=== PATIENT | female | born 1985 | race American Indian/Alaskan Native ===

== ENCOUNTER 2018-09-22 08:35 | Observation (INO) | payer MEDICARE ==
--- NOTE | 2018-09-22 09:31 | Anesthesia Day of Surgery ---
Anesthesia Day of Surgery - Day of Surgery Patient Examined: Yes Patient H&P Reviewed: Yes Patient is NPO: Yes
--- NOTE | 2018-09-22 09:31 | Anesthesia Consultation ---
Anesthesia Consult and Med Hx - Airway Anesthetic Teeth Evaluation: Good ROM Head & Neck: Adequate Mallampati Class: Class II Intubation Access Assessment: Good - Pulmonary Exam CTA: Yes - Cardiac Exam Cardiac Exam: RRR - Pre-Operative Health Status ASA Pre-Surgery Classification: ASA3 Proposed Anesthetic Plan: General (Morbidly obese patient , weight 508 pounds) - Pulmonary Hx Smoking: Yes (1/2 PPD X 20YRS; QUIT 01/2018) Hx Asthma: Yes (RESCUE INHALER) Hx Sleep Apnea: Yes - Cardiovascular System Hx Hypertension: Yes (2015) - Central Nervous System Hx Psychiatric Problems: Yes - Other Systems Hx Alcohol Use: No Hx Substance Use: Yes (MARIJUANA) Hx Obesity: Yes
[2018-09-22] MEDS ORDERED: DILAUDID IV PRN ×2 (10:00→10:30)
[2018-09-22] MEDS ORDERED: ZOFRAN IV PRN ×2 (10:00→11:00)
[2018-09-22] MEDS ORDERED: LOVENOX SUB-Q NR (10:00)
[2018-09-22] MEDS ORDERED: FLAGYL 500 MG/100 ML 500 MG/100 ML BAG IV NR (10:00)
[2018-09-22] MEDS ORDERED: ANCEF/STERILE WATER 2 GM/20 ML 2 GM/20 ML SYRINGE IV NR (10:00)
[2018-09-22] MEDS: LACTATED RINGERS 1,000 ML IV SCH (10:09)
[2018-09-22] MEDS ORDERED: MORPHINE IV PRN (10:30)
[2018-09-22] MEDS ORDERED: REGLAN IV PRN (10:30)
[2018-09-22] MEDS ORDERED: TRANSDERM-SCOP TD SCH (11:00)
[2018-09-22] MEDS ORDERED: PROVENTIL IH PRN (11:47)
[2018-09-22] MEDS ORDERED: XYLOCAINE 1% 20 mL ONE (11:55)
[2018-09-22] MEDS ORDERED: MARCAINE-EPI 0.5%-1:200,000 INFILTRATI ONE ×2 (11:56→12:11)
[2018-09-22] MEDS ORDERED: ZEMURON IV ONE ×2 (12:07→13:09)
[2018-09-22] MEDS ORDERED: XYLOCAINE CARDIAC IV ONE (12:07)
[2018-09-22] MEDS ORDERED: VERSED ONE (12:07)
[2018-09-22] MEDS ORDERED: DIPRIVAN 10 MG/ML IV ONE (12:08)
[2018-09-22] MEDS ORDERED: SUBLIMAZE ONE ×2 (12:08→14:09)
[2018-09-22] MEDS ORDERED: XYLOCAINE 1% 20 mL INFILTRATI ONE (12:11)
[2018-09-22] MEDS ORDERED: NACL 0.9% IR ONE (12:11)
[2018-09-22] MEDS ORDERED: LASIX ONE (12:31)
[2018-09-22] MEDS ORDERED: XYLOCAINE MPF 2% ONE (12:32)
[2018-09-22] MEDS ORDERED: QUELICIN ONE (12:33)
[2018-09-22] MEDS ORDERED: BLOXIVERZ ONE (13:54)
[2018-09-22] MEDS ORDERED: ROBINUL ONE (13:54)
[2018-09-22] MEDS ORDERED: DILAUDID ONE (14:00)
--- NOTE | 2018-09-22 14:18 | Operative Report ---
SURGEON: Dameon Duffy MD ENDOCRINOLOGY TEACHER: Zenia Walls (Fellow), ; Maximilian Olivo MD (Assist) PREOPERATIVE DIAGNOSIS: Super morbid obesity, BMI 77 kilograms per meter squared. POSTOPERATIVE DIAGNOSIS: Super morbid obesity, BMI 77 kilograms per meter squared. OPERATION: 1. Laparoscopic sleeve gastrectomy. 2. Laparoscopic hiatal hernia repair. 3. Adhesiolysis greater than 15 minutes. ANESTHESIA: General endotracheal anesthesia. COMPLICATIONS: None. BLEEDING: Minimal. SPECIMENS: Gastric remnant. INDICATIONS: The patient is a 33-year-old female with a history of super morbid obesity. She weighs 508 pounds. She has undergone preoperative bariatric workup and presents for a planned operation. The risks, complications and alternatives were explained to the patient and informed consent was obtained. DESCRIPTION OF PROCEDURE: The patient was brought to the operating suite where she was placed in the supine position and underwent general endotracheal intubation. She received preoperative antibiotics and DVT prophylaxis. A timeout was called to ensure proper patient, indication, operation and then she was prepped and draped in the usual sterile fashion. Local analgesia was injected into the left upper quadrant and small stab incision was made with insertion of a Veress needle. Insufflation pressures were achieved to 18 mmHg. Intra-abdominal access was obtained via a 5 mm optical trocar via the right lateral quadrant. The patient had multiple omental adhesions from her prior abdominal operation. I was able to get a window and inserted two 5 mm ports in the left lateral quadrant and then these adhesions were taken down with the LigaSure device. I was able to get enough exposure to place a 15 mm trocar. I utilized her prior cholecystectomy scar several centimeters above the umbilicus for this. Local analgesia was made over the existing incision and the incision was made with a scalpel. A 15 mm trocar was inserted here and then I was able to place a subxiphoid 5 mm port. A liver retractor was placed and the patient was repositioned in steep reverse Trendelenburg. I had to reposition my right lateral port into a new 5 mm port for better working space. A hiatal dissection was first completed revealing a small hiatal hernia and the angle of His was dissected free. The esophageal gastric fat pad was dissected free. The gastrocolic ligament was then from the greater curvature of the stomach using a LigaSure device, fully mobilizing the stomach and dividing the short gastrics as well as posteriorly on the stomach and continuing anterograde for about 6 cm from the duodenum. After this, Anesthesia placed a 40-Spanish bougie for calibration and then a sleeve gastrectomy was done with several staple loads. The insufflation pressures were decreased and the staple line was cauterized after each fire load. After this, the bougie was removed and an anterior cruroplasty was then done with 0 Surgidac suture in a U-stitch fashion. I did have to place an additional interrupted Surgidac suture to close the hiatus. After ensuring hemostasis, the gastric remnant was removed from the supraumbilical port site with a large grasper. The supraumbilical fascia was closed with a #1 PDS in a [id number] fashion using a Delroy-Nikko and then all the air was desufflated. The ports were all removed and additional local was injected into the wounds. The incisions were closed with 4-0 Monocryl. Sterile bandages were placed over top. The patient tolerated the procedure with no issues and was extubated and left the operating room in stable condition. Counts were correct. FINDINGS: 1. Small hiatal hernia. 2. Moderate amount of omental adhesions from her prior operation necessitating adhesiolysis. JOB# [id number] MARLA/NAZANIN ELIZABETH
[2018-09-22] MEDS: APRESOLINE IV PRN (14:25)
[2018-09-22] MEDS ORDERED: NORMODYNE IV ONE ×3 (16:55→16:56)
[2018-09-22] MEDS: NORCO PO PRN (23:14)
[2018-09-23] MEDS: APRESOLINE IV PRN (00:33)
[2018-09-23] MEDS: MYLICON PO PRN ×2 (03:41→10:53)
[2018-09-23] MEDS: NORCO PO PRN (06:28)
[2018-09-23] MEDS: LACTATED RINGERS 1,000 ML IV SCH (06:41)
--- NOTE | 2018-09-23 08:18 | Discharge Summary ---
Providers - Providers Date of Admission: 09/22/18 08:35 Date of discharge: 09/23/18 Attending physician: VILMA DUFFY Primary care physician: STEFFEN HOUSE SUPERVISOR Hospitalization Reason for admission: postop Condition: Good Procedures: 09/22/18: Laparoscopic sleeve gastrectomy Hospital course: 33F admitted after her operation for routine postop care. She had minor nausea but ambulated the next day, pain tolerable. She was able to tolerate CLD and was dc home POD1. Disposition: DC-01 TO HOME OR SELFCARE Core Measure Documentation - Palliative Care Palliative Care/ Comfort Measures: Not Applicable - Core Measures Any of the following diagnoses?: none - VTE Discharge Requirements Deep Vein Thrombosis/Pulmonary Embolism Present on Admission: No - Acute LA Discharge Requirements Aspirin at discharge: No Reason for no aspirin on DC: Surgical contraindication - Heart Failure Discharge Requirements DAFNE/ARB for LVSD if EF <40%: Not Applicable - Stroke Discharge Requirements Statin for LDL = or >70 mg/dl on DC: Not Applicable Exam - Physical Exam Narrative exam: Gen: AAO, NAD Heart: RRR Lungs: Clear Abd: MO, soft, NT, ND. Bandages c/d/i. - Constitutional Vitals: Temp Pulse Resp BP Pulse Ox 97.8 F 48 L 17 176/72 98 09/23/18 03:55 09/23/18 03:55 09/23/18 07:28 09/23/18 03:55 09/23/18 03:55 Plan Diet: clear liquids Wound: keep clean and dry Special Instructions: no heavy lifting Additional Instructions: Andrew Duffy as scheduled Follow up with: PRIMARY CAREMD [Primary Care Provider] - 7 Days
[2018-09-23] MEDS ORDERED: ALDACTONE PO SCH (10:00)
[2018-09-23] MEDS ORDERED: LOVENOX SUB-Q SCH (10:00)
[2018-09-23] MEDS ORDERED: LOPRESSOR PO SCH (10:00)
[2018-09-23] MEDS ORDERED: WELLBUTRIN PO SCH (10:00)
[2018-09-23 10:14] VITALS: BP 164/71
[2018-09-23 11:17] LABS: Basophils % (Auto) 0.2 % (0.0-1.8); Hematocrit 32.6 % (30.3-42.9); Hemoglobin 10.6 gm/dl (10.1-14.3); Lymphocytes % (Auto) 15.8 % (13.4-35.0); Mean Corpuscular HGB Conc 33 % (30-34); Mean Corpuscular Volume 90 fl (79-97); Monocytes # (Auto) 0.8 K/mm3 (0.0-0.8); Monocytes % (Auto) 6.2 % (0.0-7.3); Platelet Count 382 K/mm3 (140-440); Red Blood Count 3.63 M/mm3 (3.65-5.03); Red Cell Distribution Width 15.6 % (13.2-15.2)
[2018-09-23 11:51] LABS: BUN/Creatinine Ratio 12; Blood Urea Nitrogen 7 mg/dL (7-17); Hemolysis Index 1
== END 2018-09-23 13:57 | disposition home or self-care (01) ==
LOC: INTOOBSV 08:35 → 3A 08:35 → 3B-SURG 17:28
PROVIDERS: ADMIT Specialist; ATTEND Specialist
DX: E66.01 Morbid (severe) obesity due to excess calories (principal); J45.909 Unspecified asthma, uncomplicated; G47.30 Sleep apnea, unspecified; F31.9 Bipolar disorder, unspecified; E11.9 Type 2 diabetes mellitus without complications; I10 Essential (primary) hypertension; R06.02 Shortness of breath; K30 Functional dyspepsia; Z68.45 Body mass index [BMI] 70 or greater, adult; Z71.3 Dietary counseling and surveillance; Z90.49 Acquired absence of other specified parts of digestive tract; Z79.899 Other long term (current) drug therapy; Z98.890 Other specified postprocedural states
CPT/HCPCS: 36415; 43280; 43775; 80048; 81025; 85025; 88307; 94760; 96372; 96374; 96375; 96376; G0378; G0379; J0330; J0360; J0690; J1170; J1650; J2250; J2270; J2405; J2704; J2710; J3010; J7120; J1940; J2001